=== PATIENT | male | born 1940 | race Caucasian/White ===

== ENCOUNTER 2022-07-07 14:56 | Outpatient (CLI) | payer MEDICARE, SELFPAY ==
[2022-07-07 11:03] LABS: Blood Urea Nitrogen* 19 mg/dL (7-30); Calcium* 8.8 mg/dL (8.4-10.6); Carbon Dioxide* 28 mmol/L (20-32); Chloride* 103 mmol/L (96-114); Creatinine* 0.9 mg/dL (0.5-1.5); Estimated Glomerular Filt Rate 86 ml/min; Glucose* 85 mg/dL (60-115); Potassium* 4.2 mmol/L (3.6-5.1); Sodium* 139 mmol/L (135-149)
[2022-07-09 23:57] LABS: Cholesterol* 114 mg/dL (90-199); HDL Cholesterol* 51 mg/dL (>=40); LDL Cholesterol Calculated 51 mg/dL (<100); Triglycerides* 59 mg/dL (40-149)
== END 2022-07-07 14:57 | disposition home or self-care (01) ==
PROVIDERS: PCP Family Medicine; Visit Provider Family Medicine
DX: I10 Essential (primary) hypertension (principal); Z13.6 Encounter for screening for cardiovascular disorders
CPT/HCPCS: 80048; 80061

== ENCOUNTER 2023-06-28 08:34 | Outpatient (CLI) | payer MEDICARE, SELFPAY | END 2023-06-28 08:35 | disposition home or self-care (01) | LOC: NFLDREF 07-01 06:34 | PROVIDERS: PCP Family Medicine; Referring Provider Family Medicine; Visit Provider Family Medicine | DX: Z13.220 Encounter for screening for lipoid disorders (principal); I10 Essential (primary) hypertension; Z13.6 Encounter for screening for cardiovascular disorders | CPT/HCPCS: 80048; 80061 ==

== ENCOUNTER 2024-07-24 08:02 | Outpatient (CLI) | payer MEDICARE, SELFPAY | END 2024-07-24 08:03 | disposition home or self-care (01) | LOC: NFLDREF 07-27 22:59 | PROVIDERS: PCP Family Medicine; Referring Provider Family Medicine; Visit Provider Family Medicine | DX: I10 Essential (primary) hypertension (principal); Z13.6 Encounter for screening for cardiovascular disorders | CPT/HCPCS: 80053; 80061 ==

== ENCOUNTER 2024-11-04 08:14 | Emergency (ER) | payer MEDICARE, SELFPAY ==
[2024-11-04 08:26] VITALS: BP 170/123; PULSE 87; RESP 16; TEMP 36; O2SAT 99; BMI 25.1
--- NOTE | 2024-11-04 08:43 | CRLHL7_ITS ---
For Patients: As a result of the Cures Act, medical imaging exams and procedure reports are released immediately into your electronic medical record. You may view this report before your referring provider. If you have questions, please contact your health care provider. Indication: Hip pain. Technique: Pelvis and left hip 3 view. Comparison: None. Findings: Moderate degenerative arthrosis of bilateral hips. No acute fracture or dislocation. No localized soft tissue swelling. Enthesophytes at the ischial tuberosities and iliac crests are present. Impression: Moderate degenerative arthrosis without osseous abnormality. Dictated by Asher David MD @ 11/04/2024 9:14:02 AM (Electronically Signed)
--- NOTE | 2024-11-04 08:44 | CRLHL7_ITS ---
For Patients: As a result of the Century Cures Act, medical imaging exams and procedure reports are released immediately into your electronic medical record. You may view this report before your referring provider. If you have questions, please contact your health care provider. HISTORY: Swelling. TECHNIQUE: Ultrasound of the left lower extremity deep veins using betancourt-scale, color Doppler, and spectral Doppler. COMPARISON: None. FINDINGS: Left: Common femoral, femoral, and popliteal veins are patent and compressible with normal response to augmentation. Deep femoral vein is patent and compressible. Posterior tibial vein is patent and compressible with normal response to augmentation. Peroneal vein is patent and compressible. Greater saphenous vein is patent and compressible at the junction with the femoral vein. - Right: Common femoral vein is patent and compressible with normal response to augmentation. IMPRESSION: No left lower extremity DVT. Dictated by Karolina Reis MD @ 11/04/2024 10:12:18 AM (Electronically Signed)
--- NOTE | 2024-11-04 09:26 | ED_ITS ---
HPI - General Adult General Chief complaint: Extremity Pain/Injury, Lower Stated complaint: L hip/leg Time Seen by Provider: 11/04/24 08:32 Source: patient Mode of arrival: ambulatory Limitations: no limitations History of Present Illness HPI narrative: 84-year-old male coming in today complaining of left lower extremity pain that started over a week ago. He states he was working in his workshop when all of a sudden he felt pain in the upper left outer hip area. The pain stayed localized for about 1 week. It causes difficulty walking, difficulty sleeping. He was taking Advil for his discomfort. He denies any systemic symptoms. Then yesterday he finally started to feel better. Unfortunately this morning he woke up and he noticed that his entire left lower extremity was swollen in that the pain had returned. He has a hard time moving that leg, feels like the leg might give out. He denies any knee or ankle pain. Continues to denies systemic symptoms such as cough, shortness of breath, fatigue or weakness. Denies any loss of bowel or bladder function. Denies any central back pain. Related Data Home Medications ?Medication ?Instructions ?Recorded ?Confirmed aspirin 81 mg tablet,delayed 81 mg PO QDAY 07/15/22 11/04/24 release (Adult Aspirin Regimen) vit 2 cap PO .QD 07/15/22 11/04/24 C,E,zinc,Fz-skhfq-2-lutein-zeaxanthin 250 mg-2.5 mg-0.5 mg capsule Previous Rx's ?Medication ?Instructions ?Recorded amlodipine 2.5 mg tablet 2.5 mg PO QDAY #90 tabs 07/26/24 epinephrine 0.3 mg/0.3 mL 0.3 mg (0.3 mL) IM .As Needed as 07/26/24 injection, auto-injector needed PRN anaphylaxis #2 ea lisinopril 40 mg tablet 40 mg PO QDAY #90 tabs 07/26/24 Allergies Allergy/AdvReac Type Severity Reaction Status Date / Time bee venom protein (honey bee) Allergy Severe Hives Verified 11/04/24 08:24 Review of Systems Status of ROS: Reports: 10 or more systems reviewed and unremarkable except as noted in History and below [facility] Medical History COVID ?U07.1 - COVID-19 (ICD-10) History of transient cerebral ischemia ?Z86.73 - Personal history of transient ischemic attack (TIA), and cerebral infarction without residual deficits (ICD-10) History of atrial fibrillation ?Z86.79 - Personal history of other diseases of the circulatory system (ICD- 10) Surgical History Status post cholecystectomy ?Z90.49 - Acquired absence of other specified parts of digestive tract (ICD- 10) Status post appendectomy ?Z90.49 - Acquired absence of other specified parts of digestive tract (ICD- 10) Social History What is your current living situation?: I presently have a place to live Problems where you live: declined to answer In the past 12 months, utilities in danger of being shut off: no In past 12 months, lack of transportation kept you from medical appts, meetings, work, or getting things needed for daily living: no In the past 12 mos, have been you worried that your food would run out before y ou had money to buy more?: never true In the past 12 mos, the food you bought just didn't last and you didn't have money to buy more?: never true Smoking Status: Former smoker How often do you have a drink containing alcohol: never AUDIT-C Alcohol total score: 0 Non-prescribed substance use: denies use How often does anyone, including family, friends and others, physically hurt you : never How often does anyone, including family, friends and others, insult or talk down to you: never How often does anyone, including family, friends and others, threaten you with harm: never How often does anyone, including family, friends and others, scream or curse at you: never Exam Narrative: Exam Narrative: Well-nourished well-developed elderly patient in no acute distress. Alert and oriented. Answers questions appropriately. Mood and affect are appropriate. Thoughts are goal oriented and rational. No tangential or magical thinking noted. Patient speaks in full sentences without needing to catch his breath. HEENT: Normocephalic atraumatic. Extraocular muscles are intact. Conjunctivae are moist without any icterus noted. Moist mucous membranes. Lungs: Clear to auscultation bilaterally no wheezes rhonchi or rales are appreciated. Abdomen: Soft and nontender nondistended with normal bowel sounds. Extremities: left lower extremity has 2+ pitting edema all the way up to the knee. Patient states that his pain is located over the left outer hip area. I cannot reproduce the pain with palpation of the area. Patient has no pain with passive range of motion at the ankle or the knee. Patient cannot lift the left lower extremity off of the bed when he is lying flat secondary to discomfort at the hip joint. He has pain with internal rotation of the hip. He has no problem lifting the right leg off the bed. Skin: Well perfused without any obvious rashes. Back: Normal appearance. No tenderness to palpation of the thoracic or lumbar spine. Const: Vital Signs, click to edit/add: Vital Signs - 24 hr 11/04/24 08:26 Temperature 96.8 F L Pulse Rate [Pulse Oximeter] 87 Respiratory Rate 16 Blood Pressure [Le ft Upper Arm] 170/123 H Pulse Oximetry 99 Oxygen Delivery Me thod Room Air Course Course ED Course: Hip x-ray was done: No acute abnormalities noted. No evidence of DVT. Vital Signs Vital signs: Initial Vital Signs Temperature 96.8 F L 11/04/24 08:26 Temperature Source Temporal Artery Scan 11/04/24 08:26 Pulse Rate 87 11/04/24 08:26 Pulse Rhythm Regular 11/04/24 08:26 Respiratory Rate 16 11/04/24 08:26 Blood Pressure 170/123 H 11/04/24 08:26 Blood Pressure Mean 138 H 11/04/24 08:26 Blood Pressure Position Sitting 11/04/24 08:26 Pulse Oximetry 99 11/04/24 08:26 Oxygen Delivery Method Room Air 11/04/24 08:26 Vital Signs Temperature 96.8 F L 11/04/24 08:26 Pulse Rate 87 11/04/24 08:26 Respiratory Rate 16 11/04/24 08:26 Blood Pressure 170/123 H 11/04/24 08:26 Pulse Oximetry 99 11/04/24 08:26 Oxygen Delivery Method Room Air 11/04/24 08:26 Temperature 96.8 F L 11/04/24 08:26 Pulse Rate 87 11/04/24 08:26 Respiratory Rate 16 11/04/24 08:26 Blood Pressure 170/123 H 11/04/24 08:26 Pulse Oximetry 99 11/04/24 08:26 Oxygen Delivery Method Room Air 11/04/24 08:26 Medical Decision Making MDM Narrative Medical decision making narrative: 84-year-old male with left lower extremity pain and swelling, pain appears to located in the left hip. At this time recommend symptomatic treatment and follow up with Orthopedics. Imaging Data X-ray hip: Attestation: I have reviewed the pertinent imaging results. Radiologist's impression: Hip pain. Technique: Pelvis and left hip 3 view. Comparison: None. Findings: Moderate degenerative arthrosis of bilateral hips. No acute fracture or dislocation. No localized soft tissue swelling. Enthesophytes at the ischial tuberosities and iliac crests are present. Impression: Moderate degenerative arthrosis without osseous abnormality. Venous US: Attestation: I have reviewed the pertinent imaging results. Radiologist's impression: Swelling. TECHNIQUE: Ultrasound of the left lower extremity deep veins using betancourt-scale, color Doppler, and spectral Doppler. COMPARISON: None. FINDINGS: Left: Common femoral, femoral, and popliteal veins are patent and compressible with normal response to augmentation. Deep femoral vein is patent and compressible. Posterior tibial vein is patent and compressible with normal response to augmentation. Peroneal vein is patent and compressible. Greater saphenous vein is patent and compressible at the junction with the fe moral vein. - Right: Common femoral vein is patent and compressible with normal response to augmentation. IMPRESSION: No left lower extremity DVT. Discharge Plan Discharge Clinical Impression: Acute leg pain Patient Disposition: Home, Self-Care Condition: Stable Additional Instructions: Okay to take Tylenol as needed/as directed for pain. Elevate the leg as much as possible to decrease swelling. Follow-up with Orthopedics. Prescriptions: No Action lisinopril 40 mg tablet 40 mg PO QDAY Qty: 90 3RF amlodipine 2.5 mg tablet 2.5 mg PO QDAY Qty: 90 3RF epinephrine 0.3 mg/0.3 mL auto-injector 0.3 mg IM .As Needed as needed PRN (Reason: anaphylaxis) Qty: 2 0RF aspirin [Adult Aspirin Regimen] 81 mg tablet,delayed release (DR/EC) 81 mg PO QDAY vit C,E,Zn,Bb--zob-zeax 250-2.5-0.5 mg capsule 2 cap PO .QD Follow Up/Referrals: Ailabmichaeli,Louis D, MD [Primary Care Provider] - Stand Alone Forms: [employer] Info Instructions
[2024-11-04] MEDS: ACETAMINOPHEN 325 MG TABLET 650 MG PO (10:22)
[2024-11-04 10:33] VITALS: BP 170/123; PULSE 87; RESP 16; TEMP 36
== END 2024-11-04 10:34 | disposition home or self-care (01) ==
PROVIDERS: Emergency Provider Family Medicine; PCP Family Medicine
DX: M79.605 Pain in left leg (principal)
CPT/HCPCS: 73502; 93971; 99284; A9270

== ENCOUNTER 2024-11-14 08:58 | Outpatient (CLI) | payer MEDICARE, SELFPAY ==
--- NOTE | 2024-11-14 09:15 | CRLHL7_ITS ---
For Patients: As a result of the Century Cures Act, medical imaging exams and procedure reports are released immediately into your electronic medical record. You may view this report before your referring provider. If you have questions, please contact your health care provider. INDICATION: Left hip pain. TECHNIQUE: Multisequence multiplanar MRI of the lumbar spine without the use of intravenous contrast. COMPARISON: Correlated with lumbar spine radiographs dated 11/08/2024. FINDINGS: Grade 1 5 mm anterolisthesis of L4 on L5. Vertebral body heights are maintained. No T1 hypointense infiltrative lesion is identified. There is mild multilevel disc height loss. The conus medullaris terminates normally at the L1 level. T12-L1: No significant spinal canal or neural foraminal stenosis. L1-L2: Broad left subarticular/foraminal disc extrusion with mild narrowing of the lateral recess and moderate-severe left neural foraminal narrowing. Questionable additional small right foraminal disc protrusion with mild resultant right neural foraminal narrowing (series 3, image 6). L2-L3: Shallow symmetric disc bulge. Mild facet joint arthrosis. No significant spinal canal or neural foraminal stenosis. L3-L4: Symmetric disc bulge. Advanced facet joint arthrosis. Moderate-severe spinal canal stenosis, moderate right neural foraminal narrowing, and mild left neural foraminal narrowing. L4-L5: Advanced facet joint arthrosis. Mild-moderate spinal canal stenosis, mild right neural foraminal narrowing, and moderate left neural foraminal narrowing. L5-S1: Symmetric disc bulge. Moderate facet joint arthrosis. Moderate right neural foraminal narrowing with questionable impingement of the exiting L5 nerve root. No high-grade left neural foraminal narrowing. IMPRESSION: 1. At L1-L2, left subarticular/foraminal disc extrusion with mild narrowing of the left lateral recess and moderate-severe left neural foraminal narrowing. 2. Additionally at L1-L2, questionable additional small right foraminal disc protrusion with mild resultant neural foraminal narrowing. 3. At L3-L4, moderate-severe spinal canal stenosis and moderate right neural foraminal narrowing. 4. At L4-L5, grade 1 anterolisthesis, mild-moderate spinal canal stenosis, and moderate left neural foraminal narrowing. 5. At L5-S1, moderate right neural foraminal narrowing with questionable impingement of the exiting L5 nerve root. Dictated by Timi Soto MD @ 11/15/2024 10:12:20 AM (Electronically Signed)
== END 2024-11-14 08:59 | disposition home or self-care (01) ==
LOC: MRI 08:58
PROVIDERS: PCP Family Medicine; Visit Provider Orthopaedic Surgery Sports Medicine
DX: M25.552 Pain in left hip (principal); M51.26 Other intervertebral disc displacement, lumbar region; M48.061 Spinal stenosis, lumbar region without neurogenic claudication; M51.27 Other intervertebral disc displacement, lumbosacral region; R29.898 Other symptoms and signs involving the musculoskeletal system; M54.16 Radiculopathy, lumbar region
CPT/HCPCS: 72148

== ENCOUNTER 2024-12-05 20:26 | Emergency (ER) | payer MEDICARE, SELFPAY ==
[2024-12-05 20:36] VITALS: BP 151/105; PULSE 106; RESP 20; TEMP 36.6; O2SAT 97; BMI 25.6
[2024-12-05] MEDS: lidocaine HCL 2 % JELLY (TOP) STERILE 6 ML TOPICAL (21:11)
--- NOTE | 2024-12-05 21:13 | ED.MALEGU ---
HPI - Male Genitourinary General Chief complaint: Urogenital Problems, Male Stated complaint: Spinal stenosis, unable to urinate Time Seen by Provider: 12/05/24 21:00 History of Present Illness HPI Narrative: This 84-year-old male comes in stating that he has not been able to pass urine since early this morning. He started physical therapy for spinal stenosis but is not having any significant worsening symptoms in that regard. His states that he did have some urinary retention about 10 days ago when it spontaneously return to normal function until now. Related Data Home Medications ?Medication ?Instructions ?Recorded ?Confirmed aspirin 81 mg tablet,delayed 81 mg PO QDAY 07/15/22 11/15/24 release (Adult Aspirin Regimen) vit 2 cap PO .QD 07/15/22 11/15/24 C,E,zinc,Rt-owpde-7-lutein-zeaxanthin 250 mg-2.5 mg-0.5 mg capsule Previous Rx's ?Medication ?Instructions ?Recorded amlodipine 2.5 mg tablet 2.5 mg PO QDAY #90 tabs 07/26/24 epinephrine 0.3 mg/0.3 mL 0.3 mg (0.3 mL) IM .As Needed as 07/26/24 injection, auto-injector needed PRN anaphylaxis #2 ea lisinopril 40 mg tablet 40 mg PO QDAY #90 tabs 07/26/24 Allergies Allergy/AdvReac Type Severity Reaction Status Date / Time bee venom protein (honey bee) Allergy Severe Hives Verified 12/05/24 20:36 Review of Systems Status of ROS: Reports: 10 or more systems reviewed and unremarkable except as noted in History and below Narrative: Constitutional: No fevers, no weight gain or loss. Eyes: No discharge. No vision changes. HENT: No congestion, no sore throat, no ear pain. Cardiovascular: No chest pain, no palpitations. Respiratory: No shortness of breath, no wheezes, no cough. Gastrointestinal: No vomiting, no diarrhea. Genitourinary: Urinary retention. Musculoskeletal: Normal range of motion. Skin: No rashes, no pruritis. Neurological: No dizziness, weakness, sensory change, speech change. Endo/Heme/Allergies: No bruising or bleeding. No polydipsia. Pysch: no suicidality, no anxiety, no insomnia. All other systems reviewed and are negative. [facility] Medical History (Updated 12/05/24 @ 21:18 by Jeff Drummond MD) Atrophy of muscle of right shoulder ?M62.511 - Muscle wasting and atrophy, not elsewhere classified, right shoulder (ICD-10) Tear of right glenoid labrum ?S43.431A - Superior glenoid labrum lesion of right shoulder, initial encounter (ICD-10) COVID ?U07.1 - COVID-19 (ICD-10) History of transient cerebral ischemia ?Z86.73 - Personal history of transient ischemic attack (TIA), and cerebral infarction without residual deficits (ICD-10) History of atrial fibrillation ?Z86.79 - Personal history of other diseases of the circulatory system (ICD-10) Surgical History Status post cholecystectomy ?Z90.49 - Acquired absence of other specified parts of digestive tract (ICD-10) Status post appendectomy ?Z90.49 - Acquired absence of other specified parts of digestive tract (ICD-10) Social History (Reviewed 11/08/24 @ 13:30 by Bobbi Kenney ~ [facility], [facility]) What is your current living situation?: I presently have a place to live Problems where you live: declined to answer In the past 12 months, utilities in danger of being shut off: no In past 12 months, lack of transportation kept you from medical appts, meetings, work, or getting things needed for daily living: no In the past 12 mos, have been you worried that your food would run out before you had money to buy more?: never true In the past 12 mos, the food you bought just didn't last and you didn't have money to buy more?: never true Smoking Status: Former smoker How often do you have a drink containing alcohol: never AUDIT-C Alcohol total score: 0 Non-prescribed substance use: denies use How often does anyone, including family, friends and others, physically hurt you: never How often does anyone, including family, friends and others, insult or talk down to you: never How often does anyone, including family, friends and others, threaten you with harm: never How often does anyone, including family, friends and others, scream or curse at you: never Exam Narrative: Exam Narrative: Constitutional: Well-developed, well-nourished, no acute distress. HEENT: Normocephalic, atraumatic. Neck: Normal range of motion. Nontender. Supple. Heart: Regular. No murmurs. Normal rate. Intact distal pulses. Lungs: Clear to auscultation. No chest discomfort. No wheezes, rhonchi, or rales. Abdomen: Normal bowel sounds. Distended lower abdomen with mild tenderness. No rebound tenderness. Genitalia: Deferred. Back: No midline tenderness. Normal range of motion. Extremities: Normal range of motion. No injury. Skin: Intact. No rash. Warm. No erythema or pallor. Neurologic: No altered sensation. No weakness. Alert and oriented. Psychiatric: No suicidality. No anxiety or depression. No insomnia. Nursing notes and vitals signs are reviewed. Const: Vital Signs, click to edit/add: Vital Signs - 24 hr 12/05/24 20:36 Temperature 97.8 F Pulse Rate [Pulse Oximeter] 106 H Respiratory Rate 20 Blood Pressure [Ri ght Upper Arm] 151/105 H Pulse Oximetry 97 Oxygen Delivery Me thod Room Air Course Vital Signs Vital signs: Initial Vital Signs Temperature 97.8 F 12/05/24 20:36 Temperature Source Temporal Artery Scan 12/05/24 20:36 Pulse Rate 106 H 12/05/24 20:36 Respiratory Rate 20 12/05/24 20:36 Blood Pressure 151/105 H 12/05/24 20:36 Blood Pressure Mean 120 H 12/05/24 20:36 Blood Pressure Position Sitting 12/05/24 20:36 Pulse Oximetry 97 12/05/24 20:36 Oxygen Delivery Method Room Air 12/05/24 20:36 Vital Signs Temperature 97.8 F 12/05/24 20:36 Pulse Rate 106 H 12/05/24 20:36 Respiratory Rate 20 12/05/24 20:36 Blood Pressure 151/105 H 12/05/24 20:36 Pulse Oximetry 97 12/05/24 20:36 Oxygen Delivery Method Room Air 12/05/24 20:36 Temperature 97.8 F 12/05/24 20:36 Pulse Rate 106 H 12/05/24 20:36 Respiratory Rate 20 12/05/24 20:36 Blood Pressure 151/105 H 12/05/24 20:36 Pulse Oximetry 97 12/05/24 20:36 Oxygen Delivery Method Room Air 12/05/24 20:36 MDM - Male Genitourinary MDM Narrative Medical decision making narrative: This patient comes in with urinary retention and a bladder scan showed 600 mL of urine. A Cardoza catheter was ordered and will be placed with assistance of Uro jet for its placement. Also a urinalysis is pending at the end of my shift. The patient will need to go home with a Cardoza catheter in place and instructions were given to follow-up with his primary physician or return to clinic urgent care or emergency department for removal. If urinalysis shows evidence of infection of course he will need to be placed on an antibiotic in that case. Discharge Plan Discharge Clinical Impression: Acute urinary retention Patient Disposition: Home w/ Parent or Adult Condition: Improved Additional Instructions: Return to clinic urgent care in 3-4 days for catheter removal. Return to emergency room if worsening. Prescriptions: No Action lisinopril 40 mg tablet 40 mg PO QDAY Qty: 90 3RF amlodipine 2.5 mg tablet 2.5 mg PO QDAY Qty: 90 3RF epinephrine 0.3 mg/0.3 mL auto-injector 0.3 mg IM .As Needed as needed PRN (Reason: anaphylaxis) Qty: 2 0RF aspirin [Adult Aspirin Regimen] 81 mg tablet,delayed release (DR/EC) 81 mg PO QDAY vit C,E,Zn,Ki-jgjsa6-kym-zeax 250-2.5-0.5 mg capsule 2 cap PO .QD Follow Up/Referrals: Louis Lee MD [Primary Care Provider] - Stand Alone Forms: [employer] Info Instructions
[2024-12-05 22:00] LABS: Appearance Urine Clear (Clear); Bilirubin Urine Negative (Negative); Blood Urine Trace-intact (Negative); Color Urine Yellow (Yellow); Glucose Urine Negative (Negative); Ketones Urine Negative (Negative); Leukocyte Esterase Urine Negative (Negative); Nitrite Urine Negative (Negative); Protein Urine Negative (Negative); Specific Gravity Urine 1.015 (1.000-1.030); Urobilinogen Urine 0.2 (0.2-1.0); pH Urine 5.5 (5.0-8.5)
[2024-12-05 22:08] LABS: RBC Urine 0-2 (0-2); WBC Urine 0-2 (0-5)
== END 2024-12-05 22:21 | disposition home or self-care (01) ==
LOC: ED 21:41
PROVIDERS: Emergency Provider Emergency Medicine Emergency Medical Services; PCP Family Medicine
DX: R33.9 Retention of urine, unspecified (principal)
CPT/HCPCS: 51702; 81001; 99282; 99284

== ENCOUNTER 2024-12-13 20:15 | Outpatient (CLI) | payer MEDICARE, SELFPAY | END 2024-12-13 20:16 | disposition home or self-care (01) | LOC: AMB 12-14 10:42 | PROVIDERS: PCP Family Medicine; Visit Provider Emergency Medicine Emergency Medical Services | DX: R10.9 Unspecified abdominal pain (principal) | CPT/HCPCS: A0425; A0427 ==

== ENCOUNTER 2024-12-13 20:48 | Emergency (ER) | payer MEDICARE, SELFPAY ==
[2024-12-13 20:49] VITALS: BP 141/95; PULSE 84; RESP 18; TEMP 37.2; O2SAT 97; BMI 25.1
[2024-12-13 20:57] VITALS: PULSE 101; O2SAT 98
[2024-12-13 21:00] VITALS: PULSE 98; O2SAT 97
[2024-12-13 21:15] VITALS: PULSE 99; O2SAT 98
--- NOTE | 2024-12-13 21:23 | ED_ITS ---
HPI - Male Genitourinary General Chief complaint: Urogenital Problems, Male Stated complaint: Abdominal Pain Time Seen by Provider: 12/13/24 21:14 History of Present Illness HPI Narrative: This 84-year-old male comes in with his because of urinary retention. He was seen by me about a week ago and a Cardoza catheter was placed. He had this removed 3 days ago and was able to void urine but now is in retention once again. He has not been in to see a urologist as of yet. He does report a new diagnosis of spinal stenosis and has been to the orthopedic clinic in that regard. He does have chronic atrial fibrillation and now is reporting some increased pedal edema. He is not on a diuretic. Related Data Home Medications ?Medication ?Instructions ?Recorded ?Confirmed aspirin 81 mg tablet,delayed 81 mg PO QDAY 07/15/22 12/10/24 release (Adult Aspirin Regimen) vit 2 cap PO .QD 07/15/22 12/10/24 C,E,zinc,Sm-fmdiq-4-lutein-zeaxanthin 250 mg-2.5 mg-0.5 mg capsule Previous Rx's ?Medication ?Instructions ?Recorded amlodipine 2.5 mg tablet 2.5 mg PO QDAY #90 tabs 07/26/24 epinephrine 0.3 mg/0.3 mL 0.3 mg (0.3 mL) IM .As Needed as 07/26/24 injection, auto-injector needed PRN anaphylaxis #2 ea lisinopril 40 mg tablet 40 mg PO QDAY #90 tabs 07/26/24 Allergies Allergy/AdvReac Type Severity Reaction Status Date / Time bee venom protein (honey bee) Allergy Severe Hives Verified 12/13/24 20:53 Review of Systems Status of ROS: Reports: 10 or more systems reviewed and unremarkable except as noted in History and below Narrative: Constitutional: No fevers, no weight gain or loss. Eyes: No discharge. No vision changes. HENT: No congestion, no sore throat, no ear pain. Cardiovascular: No chest pain, no palpitations. Respiratory: No shortness of breath, no wheezes, no cough. Gastrointestinal: No vomiting, no diarrhea. Abdominal distension. Genitourinary: No dysuria, no hematuria. Musculoskeletal: Normal range of motion. Generalized weakness due to deconditioning and spinal stenosis. Skin: No rashes, no pruritis. Neurological: No dizziness, weakness, sensory change, speech change. Endo/Heme/Allergies: No bruising or bleeding. No polydipsia. Pysch: no suicidality, no anxiety, no insomnia. All other systems reviewed and are negative. [facility] Medical History (Updated 12/13/24 @ 22:44 by Jeff Drummond MD) Atrophy of muscle of right shoulder ?M62.511 - Muscle wasting and atrophy, not elsewhere classified, right shoulder (ICD-10) Tear of right glenoid labrum ?S43.431A - Superior glenoid labrum lesion of right shoulder, initial encounter (ICD-10) COVID ?U07.1 - COVID-19 (ICD-10) History of transient cerebral ischemia ?Z86.73 - Personal history of transient ischemic attack (TIA), and cerebral infarction without residual deficits (ICD-10) History of atrial fibrillation ?Z86.79 - Personal history of other diseases of the circulatory system (ICD- 10) Surgical History Status post cholecystectomy ?Z90.49 - Acquired absence of other specified parts of digestive tract (ICD- 10) Status post appendectomy ?Z90.49 - Acquired absence of other specified parts of digestive tract (ICD- 10) Social History (Reviewed 11/08/24 @ 13:30 by Bobbi Kenney ~ [facility], [facility]) What is your current living situation?: I presently have a place to live Problems where you live: declined to answer In the past 12 months, utilities in danger of being shut off: no In past 12 months, lack of transportation kept you from medical appts, meetings, work, or getting things needed for daily living: no In the past 12 mos, have been you worried that your food would run out before you had money to buy more?: never true In the past 12 mos, the food you bought just didn't last and you didn't have money to buy more?: never true Smoking Status: Former smoker How often do you have a drink containing alcohol: never AUDIT-C Alcohol total score: 0 Non-prescribed substance use: denies use How often does anyone, including family, friends and others, physically hurt you : never How often does anyone, including family, friends and others, insult or talk down to you: never How often does anyone, including family, friends and others, threaten you with harm: never How often does anyone, including family, friends and others, scream or curse at you: never Exam Narrative: Exam Narrative: Constitutional: Well-developed, well-nourished, no acute distress. HEENT: Normocephalic, atraumatic. Neck: Normal range of motion. Nontender. Supple. Heart: No murmurs. Normal rate. Intact distal pulses. Lungs: Clear to auscultation. No chest discomfort. No wheezes, rhonchi, or rales. Abdomen: Normal bowel sounds. Some distention of the lower abdomen. No rebound tenderness. Genitalia: Deferred. Back: No midline tenderness. Normal range of motion. Extremities: Normal range of motion. No injury. Skin: Intact. No rash. Warm. No erythema or pallor. Neurologic: No altered sensation. No weakness. Alert and oriented. Psychiatric: No suicidality. No anxiety or depression. No insomnia. Nursing notes and vitals signs are reviewed. Const: Vital Signs, click to edit/add: Vital Signs - 24 hr 12/13/24 20:49 12/13/24 20:57 12/13/24 21:00 Temperature 98.9 F Pulse Rate 101 H 98 Pulse Rate [Right Pulse Oximeter] 84 Respiratory Rate 18 Blood Pressure [Ri ght Upper Arm] 141/95 H Pulse Oximetry 97 98 97 Oxygen Delivery Me thod Room Air 12/13/24 21:15 12/13/24 21:30 12/13/24 21:45 Temperature Pulse Rate 99 106 H 107 H Pulse Rate [Right Pulse Oximeter] Respiratory Rate Blood Pressure [Ri ght Upper Arm] Pulse Oximetry 98 98 98 Oxygen Delivery Me thod Course Vital Signs Vital signs: Initial Vital Signs Temperature 98.9 F 12/13/24 20:49 Temperature Source Temporal Artery Scan 12/13/24 20:49 Pulse Rate 84 12/13/24 20:49 Pulse Rhythm Regular 12/13/24 20:49 Pulse Strength 3+ Normal 12/13/24 20:49 Respiratory Rate 18 12/13/24 20:49 Blood Pressure 141/95 H 12/13/24 20:49 Blood Pressure Mean 110 H 12/13/24 20:49 Blood Pressure Position Supine 12/13/24 20:49 Pulse Oximetry 97 12/13/24 20:49 Oxygen Delivery Method Room Air 12/13/24 20:49 Vital Signs Temperature 98.9 F 12/13/24 20:49 Pulse Rate 84 12/13/24 20:49 Respiratory Rate 18 12/13/24 20:49 Blood Pressure 141/95 H 12/13/24 20:49 Pulse Oximetry 97 12/13/24 20:49 Oxygen Delivery Method Room Air 12/13/24 20:49 Temperature 98.9 F 12/13/24 20:49 Pulse Rate 107 H 12/13/24 21:45 Respiratory Rate 18 12/13/24 20:49 Blood Pressure 141/95 H 12/13/24 20:49 Pulse Oximetry 98 12/13/24 21:45 Oxygen Delivery Method Room Air 12/13/24 20:49 MDM - Male Genitourinary MDM Narrative Medical decision making narrative: This patient comes in with urinary retention after removing a Cardoza catheter yesterday. A Cardoza catheter was once again placed. His bladder scan showed almost 900 mL of urine. The actual amount draining from the Cardoza catheter was approximately 500ml . The patient does have spinal stenosis and he and his keep thinking that that is the primary cause of his urinary retention. I stated that this could be but it would be worth visiting a urologist as is not uncommon for there to be an outflow obstruction or restriction at the prostate. I did provide a prescription for some tablets of Lasix as he is showing some pitting edema bilaterally. He did receive an IV dose of Lasix 20 mg. Urinalysis does not show any sign of infection. The patient's and son are present with him and state that he is able to get up and ambulate but has significant difficulty with getting up steps. They have 6 steps at home that he will need to traverse in order to get settled at home. I explained that we are not finding any diagnoses that require admission at this time so they are planning to give it a try to get him back home. Lab Data Labs: Lab Results 12/13/24 Range/Units 22:15 Urine Color Yellow (Yellow) Urine Appearance Clear (Clear) Urine pH 5.5 (5.0-8.5) Ur Specific [place] 1.010 (1.000-1.030) Urine Protein Negative (Negative) Urine Glucose (UA) Negative (Negative) Urine Ketones Negative (Negative) Urine Blood 1+ A (Negative) Urine Nitrite Negative (Negative) Urine Bilirubin Negative (Negative) Urine Urobilinogen 0.2 (0.2-1.0) Ur Leukocyte Esterase Negative (Negative) Urine RBC 2-5 A (0-2) Urine WBC 0-2 (0-5) Ur Squamous Epith Cells None (None-Few) Urine Bacteria None (None) Discharge Plan Discharge Clinical Impression: Acute urinary retention Patient Disposition: Home w/ Parent or Adult Condition: Improved Additional Instructions: Keep Cadroza catheter in place. Follow-up with urologist for ongoing management. Return if worsening. Prescriptions: No Action lisinopril 40 mg tablet 40 mg PO QDAY Qty: 90 3RF amlodipine 2.5 mg tablet 2.5 mg PO QDAY Qty: 90 3RF epinephrine 0.3 mg/0.3 mL auto-injector 0.3 mg IM .As Needed as needed PRN (Reason: anaphylaxis) Qty: 2 0RF aspirin [Adult Aspirin Regimen] 81 mg tablet,delayed release (DR/EC) 81 mg PO QDAY vit C,E,Zn,Kz-jehbe3-vfc-zeax 250-2.5-0.5 mg capsule 2 cap PO .QD Follow Up/Referrals: Louis Lee MD [Primary Care Provider] - Stand Alone Forms: [facility] Info Instructions
[2024-12-13 21:30] VITALS: PULSE 106; O2SAT 98
[2024-12-13 21:45] VITALS: PULSE 107; O2SAT 98
[2024-12-13 22:17] LABS: Appearance Urine Clear (Clear); Bilirubin Urine Negative (Negative); Blood Urine 1+ (Negative); Color Urine Yellow (Yellow); Glucose Urine Negative (Negative); Ketones Urine Negative (Negative); Leukocyte Esterase Urine Negative (Negative); Nitrite Urine Negative (Negative); Protein Urine Negative (Negative); Urobilinogen Urine 0.2 (0.2-1.0); pH Urine 5.5 (5.0-8.5)
[2024-12-13 22:20] LABS: WBC Urine 0-2 (0-5)
[2024-12-13] MEDS: FUROSEMIDE 10 MG/ML inj 20 MG IVP (22:47)
== END 2024-12-13 23:12 | disposition home or self-care (01) ==
PROVIDERS: Emergency Provider Emergency Medicine Emergency Medical Services; PCP Family Medicine
DX: R33.9 Retention of urine, unspecified (principal); R60.9 Edema, unspecified
CPT/HCPCS: 51702; 51798; 81001; 96374; 99283; 99284; J1938

== ENCOUNTER 2024-12-31 09:46 | Outpatient (CLI) | payer MEDICARE, SELFPAY | END 2024-12-31 09:47 | disposition home or self-care (01) | LOC: NFLDREF 01-01 22:06 | PROVIDERS: PCP Family Medicine; Referring Provider Family Medicine; Visit Provider Family Medicine | DX: I10 Essential (primary) hypertension (principal) | CPT/HCPCS: 80048 ==

== ENCOUNTER 2025-02-13 07:54 | Outpatient (CLI) | payer MEDICARE, SELFPAY | END 2025-02-13 07:55 | disposition home or self-care (01) | LOC: WOUND 07:55 | PROVIDERS: PCP Family Medicine; Visit Provider Nurse Practitioner Family | DX: L89.314 Pressure ulcer of right buttock, stage 4 (principal); D64.9 Anemia, unspecified; I48.91 Unspecified atrial fibrillation; M48.061 Spinal stenosis, lumbar region without neurogenic claudication; G82.20 Paraplegia, unspecified | CPT/HCPCS: 11042; 97605; G0463 ==

== ENCOUNTER 2025-02-20 09:33 | Outpatient (CLI) | payer MEDICARE, SELFPAY | END 2025-02-20 09:34 | disposition home or self-care (01) | LOC: WOUND 09:33 | PROVIDERS: PCP Family Medicine; Visit Provider Nurse Practitioner Family | DX: L89.314 Pressure ulcer of right buttock, stage 4 (principal); M48.061 Spinal stenosis, lumbar region without neurogenic claudication; G82.20 Paraplegia, unspecified; D64.9 Anemia, unspecified; I48.91 Unspecified atrial fibrillation | CPT/HCPCS: 11043; 97605 ==

== ENCOUNTER 2025-02-27 09:38 | Outpatient (CLI) | payer MEDICARE, SELFPAY | END 2025-02-27 09:39 | disposition home or self-care (01) | LOC: WOUND 09:38 | PROVIDERS: PCP Family Medicine; Visit Provider Family Medicine | DX: L89.314 Pressure ulcer of right buttock, stage 4 (principal); M48.061 Spinal stenosis, lumbar region without neurogenic claudication; G82.20 Paraplegia, unspecified; D64.9 Anemia, unspecified | CPT/HCPCS: 11042; 97605 ==

== ENCOUNTER 2025-03-06 09:33 | Outpatient (CLI) | payer MEDICARE, SELFPAY | END 2025-03-06 09:34 | disposition home or self-care (01) | LOC: WOUND 09:33 | PROVIDERS: PCP Family Medicine; Visit Provider Physician Assistant | DX: L89.314 Pressure ulcer of right buttock, stage 4 (principal); G82.20 Paraplegia, unspecified | CPT/HCPCS: 97597; 97605 ==

== ENCOUNTER 2025-03-13 09:29 | Outpatient (CLI) | payer MEDICARE, SELFPAY | END 2025-03-13 09:30 | disposition home or self-care (01) | LOC: WOUND 09:29 | PROVIDERS: PCP Family Medicine; Visit Provider Nurse Practitioner Family | DX: L89.314 Pressure ulcer of right buttock, stage 4 (principal); G82.20 Paraplegia, unspecified | CPT/HCPCS: 11042; 97605 ==

== ENCOUNTER 2025-03-20 09:36 | Outpatient (CLI) | payer MEDICARE, SELFPAY | END 2025-03-20 09:37 | disposition home or self-care (01) | LOC: WOUND 09:36 | PROVIDERS: PCP Family Medicine; Visit Provider Nurse Practitioner Family | DX: L89.314 Pressure ulcer of right buttock, stage 4 (principal); G82.20 Paraplegia, unspecified; M48.061 Spinal stenosis, lumbar region without neurogenic claudication; D64.9 Anemia, unspecified | CPT/HCPCS: 15271; 97605; Q4201 ==

== ENCOUNTER 2025-03-27 09:26 | Outpatient (CLI) | payer MEDICARE, SELFPAY | END 2025-03-27 09:27 | disposition home or self-care (01) | LOC: WOUND 09:26 | PROVIDERS: PCP Family Medicine; Visit Provider Nurse Practitioner Family | DX: L89.314 Pressure ulcer of right buttock, stage 4 (principal); G82.20 Paraplegia, unspecified; D64.9 Anemia, unspecified; I48.91 Unspecified atrial fibrillation | CPT/HCPCS: 11042; 97605 ==

== ENCOUNTER 2025-04-03 09:31 | Outpatient (CLI) | payer MEDICARE, SELFPAY | END 2025-04-03 09:32 | disposition home or self-care (01) | LOC: WOUND 09:31 | PROVIDERS: PCP Family Medicine; Visit Provider Nurse Practitioner Family | DX: L89.154 Pressure ulcer of sacral region, stage 4 (principal); M48.061 Spinal stenosis, lumbar region without neurogenic claudication; G82.20 Paraplegia, unspecified | CPT/HCPCS: 15271; 97605; Q4201 ==

== ENCOUNTER 2025-04-10 09:27 | Outpatient (CLI) | payer MEDICARE, SELFPAY | END 2025-04-10 09:28 | disposition home or self-care (01) | LOC: WOUND 09:27 | PROVIDERS: PCP Family Medicine; Visit Provider Nurse Practitioner Family | DX: L89.314 Pressure ulcer of right buttock, stage 4 (principal); M48.061 Spinal stenosis, lumbar region without neurogenic claudication; G82.20 Paraplegia, unspecified; D64.9 Anemia, unspecified; I48.91 Unspecified atrial fibrillation | CPT/HCPCS: 11042; 97605 ==

== ENCOUNTER 2025-04-17 09:30 | Outpatient (CLI) | payer MEDICARE, SELFPAY | END 2025-04-17 09:31 | disposition home or self-care (01) | LOC: WOUND 09:30 | PROVIDERS: PCP Family Medicine; Visit Provider Nurse Practitioner Family | DX: L89.314 Pressure ulcer of right buttock, stage 4 (principal); M48.061 Spinal stenosis, lumbar region without neurogenic claudication; D64.9 Anemia, unspecified; G82.20 Paraplegia, unspecified; I48.91 Unspecified atrial fibrillation | CPT/HCPCS: 15271; 15275; Q4201 ==

== ENCOUNTER 2025-04-24 09:38 | Outpatient (CLI) | payer MEDICARE, SELFPAY | END 2025-04-24 09:39 | disposition home or self-care (01) | LOC: WOUND 09:38 | PROVIDERS: PCP Family Medicine; Visit Provider Nurse Practitioner Family | DX: L89.314 Pressure ulcer of right buttock, stage 4 (principal); M48.061 Spinal stenosis, lumbar region without neurogenic claudication; G82.20 Paraplegia, unspecified; I48.91 Unspecified atrial fibrillation; D64.9 Anemia, unspecified | CPT/HCPCS: 11042 ==

== ENCOUNTER 2025-05-01 09:29 | Outpatient (CLI) | payer MEDICARE, SELFPAY | END 2025-05-01 09:30 | disposition home or self-care (01) | LOC: WOUND 09:29 | PROVIDERS: PCP Family Medicine; Visit Provider Nurse Practitioner Family | DX: L89.314 Pressure ulcer of right buttock, stage 4 (principal); G82.20 Paraplegia, unspecified; D64.9 Anemia, unspecified; M48.061 Spinal stenosis, lumbar region without neurogenic claudication; I48.91 Unspecified atrial fibrillation | CPT/HCPCS: 15271; Q4201 ==

== ENCOUNTER 2025-05-08 09:32 | Outpatient (CLI) | payer MEDICARE, SELFPAY | END 2025-05-08 09:33 | disposition home or self-care (01) | LOC: WOUND 09:32 | PROVIDERS: PCP Family Medicine; Visit Provider Nurse Practitioner Family | DX: L89.314 Pressure ulcer of right buttock, stage 4 (principal); M48.061 Spinal stenosis, lumbar region without neurogenic claudication; D64.9 Anemia, unspecified; I48.91 Unspecified atrial fibrillation | CPT/HCPCS: G0463 ==

== ENCOUNTER 2025-05-15 09:37 | Outpatient (CLI) | payer MEDICARE, SELFPAY | END 2025-05-15 09:38 | disposition home or self-care (01) | LOC: WOUND 09:37 | PROVIDERS: PCP Family Medicine; Visit Provider Nurse Practitioner Family | DX: L89.314 Pressure ulcer of right buttock, stage 4 (principal); G82.20 Paraplegia, unspecified; F64.9 Gender identity disorder, unspecified; I48.91 Unspecified atrial fibrillation; M48.061 Spinal stenosis, lumbar region without neurogenic claudication | CPT/HCPCS: 15271; Q4158 ==

== ENCOUNTER 2025-05-22 09:25 | Outpatient (CLI) | payer MEDICARE, SELFPAY | END 2025-05-22 09:26 | disposition home or self-care (01) | LOC: WOUND 09:25 | PROVIDERS: PCP Family Medicine; Visit Provider Nurse Practitioner Family | DX: L89.314 Pressure ulcer of right buttock, stage 4 (principal); D64.9 Anemia, unspecified; I48.91 Unspecified atrial fibrillation; M48.061 Spinal stenosis, lumbar region without neurogenic claudication; G82.20 Paraplegia, unspecified | CPT/HCPCS: G0463 ==

== ENCOUNTER 2025-05-29 09:30 | Outpatient (CLI) | payer MEDICARE, SELFPAY | END 2025-05-29 09:31 | disposition home or self-care (01) | LOC: WOUND 09:30 | PROVIDERS: PCP Family Medicine; Visit Provider Nurse Practitioner Family | DX: L89.314 Pressure ulcer of right buttock, stage 4 (principal); D64.9 Anemia, unspecified; I48.91 Unspecified atrial fibrillation; M48.061 Spinal stenosis, lumbar region without neurogenic claudication; G82.20 Paraplegia, unspecified | CPT/HCPCS: G0463 ==

== ENCOUNTER 2025-06-05 09:34 | Outpatient (CLI) | payer MEDICARE, SELFPAY | END 2025-06-05 09:35 | disposition home or self-care (01) | LOC: WOUND 09:34 | PROVIDERS: PCP Family Medicine; Visit Provider Nurse Practitioner Family | DX: L89.314 Pressure ulcer of right buttock, stage 4 (principal); G82.20 Paraplegia, unspecified; M48.061 Spinal stenosis, lumbar region without neurogenic claudication; D64.9 Anemia, unspecified; I48.91 Unspecified atrial fibrillation | CPT/HCPCS: 15271; Q4158 ==

== ENCOUNTER 2025-06-12 09:33 | Outpatient (CLI) | payer MEDICARE, SELFPAY | END 2025-06-12 09:34 | disposition home or self-care (01) | LOC: WOUND 09:33 | PROVIDERS: PCP Family Medicine; Visit Provider Nurse Practitioner Family | DX: L89.314 Pressure ulcer of right buttock, stage 4 (principal); G82.20 Paraplegia, unspecified; M48.061 Spinal stenosis, lumbar region without neurogenic claudication; D64.9 Anemia, unspecified; I48.91 Unspecified atrial fibrillation | CPT/HCPCS: 15271; Q4158 ==

== ENCOUNTER 2025-06-19 09:32 | Outpatient (CLI) | payer MEDICARE, SELFPAY | END 2025-06-19 09:33 | disposition home or self-care (01) | LOC: WOUND 09:32 | PROVIDERS: PCP Family Medicine; Visit Provider Nurse Practitioner Family | DX: L89.314 Pressure ulcer of right buttock, stage 4 (principal); G82.20 Paraplegia, unspecified; M48.061 Spinal stenosis, lumbar region without neurogenic claudication; D64.9 Anemia, unspecified; I48.91 Unspecified atrial fibrillation | CPT/HCPCS: G0463 ==

== ENCOUNTER 2025-06-26 09:32 | Outpatient (CLI) | payer MEDICARE, SELFPAY | END 2025-06-26 09:33 | disposition home or self-care (01) | LOC: WOUND 09:32 | PROVIDERS: PCP Family Medicine; Visit Provider Nurse Practitioner Family | DX: L89.314 Pressure ulcer of right buttock, stage 4 (principal); G82.20 Paraplegia, unspecified; M48.061 Spinal stenosis, lumbar region without neurogenic claudication; D64.9 Anemia, unspecified; I48.91 Unspecified atrial fibrillation | CPT/HCPCS: 11042 ==

== ENCOUNTER 2025-07-03 09:29 | Outpatient (CLI) | payer MEDICARE, SELFPAY | END 2025-07-03 09:30 | disposition home or self-care (01) | LOC: WOUND 09:29 | PROVIDERS: PCP Family Medicine; Visit Provider Nurse Practitioner Family | DX: L89.314 Pressure ulcer of right buttock, stage 4 (principal); G82.20 Paraplegia, unspecified; M48.061 Spinal stenosis, lumbar region without neurogenic claudication; D64.9 Anemia, unspecified; I48.91 Unspecified atrial fibrillation | CPT/HCPCS: 11042 ==

== ENCOUNTER 2025-07-10 09:29 | Outpatient (CLI) | payer MEDICARE, SELFPAY | END 2025-07-10 09:30 | disposition home or self-care (01) | LOC: WOUND 09:29 | PROVIDERS: PCP Family Medicine; Visit Provider Nurse Practitioner Family | DX: L89.314 Pressure ulcer of right buttock, stage 4 (principal); G82.20 Paraplegia, unspecified; M48.061 Spinal stenosis, lumbar region without neurogenic claudication; D64.9 Anemia, unspecified; I48.91 Unspecified atrial fibrillation | CPT/HCPCS: 11042 ==

== ENCOUNTER 2025-07-17 09:35 | Outpatient (CLI) | payer MEDICARE, SELFPAY | END 2025-07-17 09:36 | disposition home or self-care (01) | LOC: WOUND 09:35 | PROVIDERS: PCP Family Medicine; Visit Provider Nurse Practitioner Family | DX: L89.314 Pressure ulcer of right buttock, stage 4 (principal); G82.20 Paraplegia, unspecified; M48.061 Spinal stenosis, lumbar region without neurogenic claudication; D64.9 Anemia, unspecified; I48.91 Unspecified atrial fibrillation | CPT/HCPCS: 11042 ==

== ENCOUNTER 2025-07-24 09:30 | Outpatient (CLI) | payer MEDICARE, SELFPAY | END 2025-07-24 09:31 | disposition home or self-care (01) | LOC: WOUND 09:30 | PROVIDERS: PCP Family Medicine; Visit Provider Nurse Practitioner Family | DX: L89.314 Pressure ulcer of right buttock, stage 4 (principal); D64.9 Anemia, unspecified; G82.20 Paraplegia, unspecified | CPT/HCPCS: 11042 ==

== ENCOUNTER 2025-07-30 08:15 | Outpatient (CLI) | payer MEDICARE, SELFPAY | END 2025-07-30 08:16 | disposition home or self-care (01) | LOC: NFLDREF 08-05 03:42 | PROVIDERS: PCP Family Medicine; Referring Provider Family Medicine; Visit Provider Family Medicine | DX: I10 Essential (primary) hypertension (principal) | CPT/HCPCS: 80048 ==

== ENCOUNTER 2025-07-31 09:30 | Outpatient (CLI) | payer MEDICARE, SELFPAY | END 2025-07-31 09:31 | disposition home or self-care (01) | LOC: WOUND 09:30 | PROVIDERS: PCP Family Medicine; Visit Provider Nurse Practitioner Family | DX: L89.314 Pressure ulcer of right buttock, stage 4 (principal); M48.061 Spinal stenosis, lumbar region without neurogenic claudication; D64.9 Anemia, unspecified; G82.20 Paraplegia, unspecified | CPT/HCPCS: 11042 ==

== ENCOUNTER 2025-08-07 09:32 | Outpatient (CLI) | payer MEDICARE, SELFPAY ==
--- NOTE | 2025-08-07 10:30 | CRLHL7_ITS ---
For Patients: As a result of the Century Cures Act, medical imaging exams and procedure reports are released immediately into your electronic medical record. You may view this report before your referring provider. If you have questions, please contact your health care provider. Indication: assess for osteomyelitis Technique: One-view pelvis Comparison: 11/04/2024 Findings: Spurring at the iliac crests. No fracture. Osteopenia. Subtle changes involving the right inferior pubic ramus suspected. Impression: Concern for right inferior pubic ramus osteomyelitis. Dictated by Milton Casiano MD @ 08/07/2025 3:16:44 PM (Electronically Signed)
[2025-08-07 10:37] LABS: Hematocrit* 49.5 % (37.0-53.0); Hemoglobin* 16.0 gm/dL (13.5-17.5); Immature Granulocytes Abs Auto 0.01 K/uL (0.00-0.30); Immature Granulocytes Pct Auto 0.2 %; Lymphocytes Absolute Auto 1.31 K/uL (0.90-2.90); Mean Corpuscular HGB Conc 32 gm/dL (32-36); Mean Corpuscular Hemoglobin 33 pg (26-34); Mean Corpuscular Volume 101 fL (80-100); RDW Coefficient of Variation % 14.4 % (11.5-15.5); Red Blood Count* 4.88 m/uL (4.30-5.90); White Blood Count* 4.76 K/uL (4.50-11.00)
[2025-08-07 10:39] LABS: Slide Review Reflex No
[2025-08-07 10:59] LABS: Chloride* 97 mmol/L (96-114); Potassium* 4.5 mmol/L (3.6-5.1); Sodium* 135 mmol/L (135-149)
[2025-08-07 11:02] LABS: Anion Gap 11 mEq/L (7-15); Blood Urea Nitrogen* 31 mg/dL (7-30); Carbon Dioxide* 27 mmol/L (20-32); Creatinine* 1.0 mg/dL (0.5-1.5); Estimated Glomerular Filt Rate 75 ml/min
[2025-08-07 11:03] LABS: Calcium* 9.0 mg/dL (8.4-10.6); Glucose* 107 mg/dL (60-115)
== END 2025-08-07 09:33 | disposition home or self-care (01) ==
PROVIDERS: PCP Family Medicine; Visit Provider Nurse Practitioner Family
DX: L89.314 Pressure ulcer of right buttock, stage 4 (principal); D64.9 Anemia, unspecified; M48.061 Spinal stenosis, lumbar region without neurogenic claudication; I48.91 Unspecified atrial fibrillation; G82.20 Paraplegia, unspecified; Z99.3 Dependence on wheelchair
CPT/HCPCS: 11042; 36415; 72170; 80048; 85025; 86140

== ENCOUNTER 2025-08-13 07:57 | Outpatient (CLI) | payer MEDICARE, SELFPAY ==
--- NOTE | 2025-08-13 08:15 | CRLHL7_ITS ---
For Patients: As a result of the Century Cures Act, medical imaging exams and procedure reports are released immediately into your electronic medical record. You may view this report before your referring provider. If you have questions, please contact your health care provider. INDICATION: Nonhealing right buttock wound. TECHNIQUE: Axial, coronal and sagittal T1 and STIR pre contrast sequences. 17 mL DuoDerm IV contrast with T1 fat-sat post-contrast images in all 3 planes. FINDINGS: Shallow narrow ulcer from the medial inferior right buttock extends within 2 cm of the inferior ischial tuberosity. Enhancing granulation tissue around the shallow air-filled defect. No marrow abnormality at the ischial tuberosity. No soft tissue fluid collection. Intact hamstring origin. Anatomic alignment of the hips. No hip joint effusions. Some increased STIR signal and fatty atrophy left tensor fossa follow-up. Edema and atrophy left gluteal abel. Complete fatty replacement of right gluteus minimus and medius. Remaining muscle bulk and signal is normal, specifically right gluteal musculature looks normal. Small amount of fluid in the posterior cephalad recess right greater trochanter bursa. This is well distant from the medial inferior buttock wound. Moderately prominent diverticulosis of visualized redundant sigmoid. IMPRESSION: 1. Shallow to intermediate depth narrow soft tissue ulcer inferior medial right buttock. No abscess. No osteomyelitis. 2. Nonspecific muscle atrophy and edema in the left gluteus abel and tensor fossa lateral. Chronic appearing complete left gluteus medius and minimus atrophy likely from chronic tendinosis or tendon tearing. 3. Scant right greater trochanteric bursitis. Dictated by Greyson Watts MD @ 08/14/2025 10:57:53 AM (Electronically Signed)
== END 2025-08-13 07:58 | disposition home or self-care (01) ==
LOC: MRI 07:58
PROVIDERS: PCP Family Medicine; Visit Provider Nurse Practitioner Family
DX: L97.519 Non-pressure chronic ulcer of other part of right foot with unspecified severity (principal); M62.50 Muscle wasting and atrophy, not elsewhere classified, unspecified site; M70.61 Trochanteric bursitis, right hip
CPT/HCPCS: 72197; A9575